=== PATIENT | male | born 1985 | race African-American/Black ===

== ENCOUNTER 2021-01-10 03:46 | Emergency (ER) | payer OTHER ==
[~2021-01-10 03:46] MED LIST: BACLOFEN 10MG T10 MG PO; IBUPROFEN800 MG PO; NAPROXEN500 MG PO; NORCO 5-325 TA1 EACH PO
[2021-01-10 04:42] LABS: POTASSIUM 3.8 mmol/L (3.5-5.1)
[2021-01-10 04:47] LABS: BASOPHIL 0.3 % (0-2); EOSINOPHIL 0.2 % (0-5); HCT 39.5 % (42.0-52.0); HGB 12.7 g/dl (13.2-18.0); LYMPHOCYTE 14.4 % (15-48); MCH 23.6 pg (25.0-31.0); MCHC 32.2 g/dL (32.0-36.0); MCV 73.3 fL (78.0-100.0); MONOCYTE 6.1 % (0-12); MPV 11.7 fL (6.0-9.5); NEUTROPHIL 78.5 % (41-80); NRBC 0; PLT 181 K/uL (150-400); RBC 5.39 M/uL (4.70-6.00); RDW 15.7 % (11.5-14.0); WBC 18.7 K/uL (4.0-10.5)
[2021-01-10 05:41] LABS: BILIRUBIN 1+ mg/dL (NEGATIVE); BLOOD 3+ Ery/uL (NEGATIVE); CLARITY CLOUDY (CLEAR); COLOR RED (YELLOW); GLUCOSE (U) NORMAL (NORMAL); LEUKOCYTES 3+ Leu/uL (NEGATIVE); NITRITE POSITIVE (NEGATIVE); PROTEIN 2+ mg/dL (NEGATIVE); SPECIFIC GRAVITY 1.015 (1.001-1.030); pH 6.5 (5.0-9.0)
[2021-01-10 05:48] LABS: BACTERIA 1+; URINARY RBC TNTC; URINARY WBC 20-50
[2021-01-10] MEDS ORDERED: PERCOCET 5-3251 EACH PO ×2 (07:39→07:43)
[2021-01-10] MEDS ORDERED: CEPHALEXIN500 M1 PO ×2 (07:39→07:43)
[2021-01-10] MEDS ORDERED: FLOMAX 0.4 MG0.4 MG PO ×2 (07:39→07:43)
== END 2021-01-10 08:13 | disposition home or self-care (01) ==
LOC: FER 03:46
PROVIDERS: Student in an Organized Health Care Education/Training Program
DX: R10.32 Left lower quadrant pain (principal); R30.0 Dysuria; N50.812 Left testicular pain; R31.0 Gross hematuria; F17.210 Nicotine dependence, cigarettes, uncomplicated
CPT/HCPCS: 36415; 74018; 80048; 81001; 85025; 87076; 87088; 87186; J0696; J1885; J2270; J2405; J7030